=== PATIENT | female | born 1950 | race Caucasian/White ===

== ENCOUNTER → 2022-10-15 11:16 | Outpatient (CLI) | payer OTHER, SELFPAY ==
[2022-10-15 12:01] LABS: COVID19 -Nasal RAPID Negative (Negative)
== END ==
PROVIDERS: PCP Family Medicine; Visit Provider Obstetrics & Gynecology
DX: Z01.812 Encounter for preprocedural laboratory examination (principal); Z20.822 Contact with and (suspected) exposure to COVID-19
CPT/HCPCS: 87635

== ENCOUNTER 2022-10-15 11:24 | Day surgery (SDC) | payer OTHER, SELFPAY ==
[2022-10-15] VITALS (8 sets, daily range): BP systolic 116–182; BP diastolic 65–78; PULSE 56–69; RESP 9–16; TEMP 36.1–36.3; O2SAT 97–99; BMI 23.9
--- NOTE | 2022-10-15 13:24 | PM.PREOP ---
Pre-operative Note COVID-19 COVID-19 status: Negative Result date/Date tested (Pos, Neg/Pending): 10/15/22 Criteria for continued procedure: Expected advancement of disease process Interval Note History & Physical reviewed/Exam performed by Physician: Yes Changes to H&P: No
--- NOTE | 2022-10-15 13:39 | SUR.OPER ---
Lithotomy on padded OR bed, head on pillow, arms secured on padded arm boards at <90 degrees abduction. Legs secured in padded yellow fins stirrups.
--- NOTE | 2022-10-15 13:51 | SUR.PREOP ---
C.O.D. BILLER ordered and then cancelled Scop patch due to PONV and glaucoma
[2022-10-15] MEDS: LACTATED RINGERS 1,000 ML 100 ML IV (13:54)
[2022-10-15] MEDS: CEFAZOLIN VIAL 1 GM in SODIUM CHLORIDE 0.9% 100 ML IV (14:15)
--- NOTE | 2022-10-15 14:50 | PM.OP.1 ---
Operative Date/Time/Diagnoses Date of procedure: 10/15/22 Time of procedure: 14:30 Pre-op diagnosis: Transvaginal erosion of surgical suture and possible erosion of surgical mesh Post-op diagnosis: same ( Transvaginal erosion of surgical suture and surgical mesh) Procedure & Clinicians Procedure: Trans vaginal excision of vaginal erosion of suture and mesh, and closure of small vaginal defect Same procedure as scheduled: Yes Indications: 71-year-old female with history of abdominal sacral colpopexy, on evaluation for recent vaginal spotting, noted to have erosion of surgical suture and possible portion of surgical mesh at her vaginal apex. Unable to adequately access vaginal apex on exam to excise in the office. She was consented to excision with closure of the vaginal defect under anesthesia. Surgeon: Celestina Kidd Click Yes if Unassisted: Yes Anesthesia Type: General Operative Notes Findings: surgical suture knot and small portion of mesh eroded through vagina at vaginal apex Closure Type: primary Specimen(s): none sent Estimated Blood Loss (mL): 2 Blood products transfused: none Procedure in detail: After being properly identified she was taken to operating room. She had voided prior to coming to the OR. After an adequate level of general anesthesia was obtained, she was placed in Adolfo stirrups, in the dorsal lithotomy position. On digital vaginal exam, at the vaginal apex, an apparent a suture knot was palpable. No other defects were palpable. She was prepped and draped in routine sterile fashion. A right angle and Junior retractor were placed in the posterior and anterior vagina, and the social service technician helped with retraction. On inspection at the vaginal apex, the suture knot was visible in the midline at the vaginal apex through a small defect in the vaginal mucosa. The suture knot was grasped with an Allis clamp, and the suture was incised beneath the knot and the white suture knot was removed. A small piece of additional suture was then grasped and trimmed, incising this to beneath the vaginal side of the vaginal defect. A small amount of apparent white mesh was also now visible. Long pickups were used and the visible mesh was grasped and placed on traction and trimmed, obtaining a few small pieces of mesh fragments. The visible mesh was trimmed to beneath the vaginal side of the mucosal defect. No further mesh or suture was visible or felt on palpation with the forceps. There was only some minimal spotting of blood with excision of the mesh and suture. The vaginal mucosal defect was then closed. It was a triangular defect approximately 1.5 x 0.75 cm and was closed with 2 interrupted sutures of 2-0 Vicryl. The procedure was ended. Sponge, needle and instrument counts were correct. She tolerated the procedure well was transferred to recovery room stable condition. Complications: none Post-operative Condition: stable Disposition: PACU Plan for aftercare: Discharge home.
== END 2022-10-15 15:43 | disposition home or self-care (01) ==
PROVIDERS: PCP Family Medicine; Referring Provider Obstetrics & Gynecology; Visit Provider Obstetrics & Gynecology
PROC: 0TSD0ZZ Reposition Urethra, Open Approach (ICD-10-PCS; CPT 58999; principal; 2022-10-15 13:30)
DX: T83.711A Erosion of implanted vaginal mesh to surrounding organ or tissue, initial encounter (principal); N93.8 Other specified abnormal uterine and vaginal bleeding; Z96.0 Presence of urogenital implants; Z20.822 Contact with and (suspected) exposure to COVID-19
CPT/HCPCS: 58999; 87635; J0330; J0690; J1100; J2250; J2405; J2704; J3010